=== PATIENT | male | born 1990 | race Caucasian/White ===

== ENCOUNTER 2024-03-01 16:50 | Emergency (ER) | payer BC, SELFPAY ==
[2024-03-01 17:03] VITALS: BP 138/102
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
[2024-03-01 18:00] VITALS: BP 134/78
[2024-03-01] MEDS: TYLENOL 1000 MG PO (18:03)
[2024-03-01 18:05] VITALS: BMI 31.9
[2024-03-01 18:05] LABS: % Basophils 0.2 % (0-2); % Eosinophils 0.4 % (0-6); % Immature Granulocytes 0.4 % (0-0.5); % Lymphocytes 13.3 % (20.5-51.1); % Monocytes 5.1 % (1.7-9.3); % Neutrophils 80.6 % (42.2-75.2); Absolute Lymphocytes 1.1 10^3/uL (1.2-3.4); Absolute Monocytes 0.4 10^3/uL (0.1-0.6); Absolute Neutrophils 6.9 10^3/uL (1.4-6.5); Hematocrit 41.3 % (39.0-52.0); Hemoglobin 14.6 g/dL (13.0-18.0); Mean Corp Hgb Conc. 35.4 g/dL (33.0-37.0); Mean Corpuscular Volume 82.1 fL (80.0-94.0); Mean Platelet Volume 9.2 fL (7.4-10.4); Nucleated Red Blood Cells % 0 % (-); Platelet Count 240 10^3/uL (130-400); Red Blood Cell Count 5.03 10^6/uL (4.70-6.10); Red Cell Dist. Width 12.4 % (11.5-14.5); White Blood Cell Count 8.6 10^3/uL (4.8-10.8)
[2024-03-01 18:13] LABS: Carboxyhemoglobin 3.2 %
[2024-03-01 18:18] LABS: ALT (SGPT) 63 U/L (0-50); AST (SGOT) 42 U/L (17-59); Albumin 5.1 g/dl (3.5-5.0); Alkaline Phosphatase 62 U/L (38-126); Blood Urea Nitrogen 14 mg/dl (9-20); Carbon Dioxide 25 mmol/L (22-30); Chloride 101 mmol/L (98-107); Estimated Creatinine Clearance 105 ml/min; Glucose 95 mg/dl (70-99); Potassium 4.3 mmol/L (3.5-5.1); Sodium 137 mmol/L (135-145); Total Bilirubin 1.9 mg/dl (0.2-1.3); Total Protein 8.1 g/dl (6.3-8.2); eGFR > 60.00
[2024-03-01 19:00] VITALS: BP 120/80
[2024-03-01] MEDS: DUONEB 3 ML INH ×2 (19:03→20:01)
[2024-03-01 20:00] VITALS: BP 130/80
== END 2024-03-01 21:09 | disposition home or self-care (01) ==
LOC: EMR 16:50
PROVIDERS: EMERGENCY PHYSICIAN Emergency Medicine
DX: T59.811A Toxic effect of smoke, accidental (unintentional), initial encounter (principal); R09.89 Other specified symptoms and signs involving the circulatory and respiratory systems; X08.8XXA Exposure to other specified smoke, fire and flames, initial encounter
CPT/HCPCS: 94640; 99284; 71045; 80053; 82375; 85025

== ENCOUNTER 2024-08-12 03:07 | Emergency (ER) | payer BC, SELFPAY ==
[2024-08-12 03:10] VITALS: BMI 30.7
--- NOTE | 2024-08-12 04:23 | DOWNTIME ---
Addendum entered by Melida Cruz RN 08/12/24 15:38:
Correction: Downtime was 08/12/2024 from 0100 to 08/12/2024 at 0415.
Original Note:
There was a [employer] Medical Operations Supervisor Downtime on 08/11/2024 from 0100 to 08/12/2024 at 0415. Downtime documentation of patient's care, including medication administrations, has been reconciled in the electronic record per guidelines. Refer to the
patient's paper chart under the miscellaneous tab to see printed paper medication records and downtime forms.
[2024-08-12 04:52] VITALS: BP 131/74
[2024-08-12 05:00] VITALS: BP 136/80
[2024-08-12 05:14] LABS: % Basophils 0.4 % (0-2); % Eosinophils 1.4 % (0-6); % Immature Granulocytes 0.2 % (0-0.5); % Lymphocytes 42.4 % (20.5-51.1); % Monocytes 8.3 % (1.7-9.3); % Neutrophils 47.3 % (42.2-75.2); Absolute Eosinophils 0.1 10^3/uL (0-0.7); Absolute Lymphocytes 2.4 10^3/uL (1.2-3.4); Absolute Monocytes 0.5 10^3/uL (0.1-0.6); Absolute Neutrophils 2.6 10^3/uL (1.4-6.5); Hematocrit 40.5 % (39.0-52.0); Hemoglobin 14.6 g/dL (13.0-18.0); Mean Corpuscular Hgb 29.4 pg (27.0-31.0); Mean Corpuscular Volume 81.5 fL (80.0-94.0); Nucleated Red Blood Cells % 0 % (-); Platelet Count 258 10^3/uL (130-400); Red Blood Cell Count 4.97 10^6/uL (4.70-6.10); Red Cell Dist. Width 12.1 % (11.5-14.5); White Blood Cell Count 5.6 10^3/uL (4.8-10.8)
[2024-08-12 05:15] LABS: APTT 30.4 Sec (23.4-35.0); INR 0.97; PT 13.2 Sec (11.4-14.6)
[2024-08-12 05:24] LABS: ALT (SGPT) 37 U/L (0-50); AST (SGOT) 23 U/L (17-59); Albumin 4.8 g/dl (3.5-5.0); Alkaline Phosphatase 48 U/L (38-126); Lipase 63 U/L (23-300); Total Bilirubin 1.6 mg/dl (0.2-1.3); Total Protein 7.6 g/dl (6.3-8.2)
[2024-08-12 05:32] LABS: Blood Urea Nitrogen 16 mg/dl (9-20); Calcium 10.3 mg/dl (8.4-10.2); Carbon Dioxide 26 mmol/L (22-30); Chloride 104 mmol/L (98-107); Estimated Creatinine Clearance 117 ml/min; Glucose 103 mg/dl (70-99); Sodium 140 mmol/L (135-145); eGFR > 60.00
[2024-08-12] MEDS: PROTONIX IV 40 MG IV (05:48)
[2024-08-12 06:00] VITALS: BP 130/86
--- NOTE | 2024-08-12 07:08 | ED.GENMED ---
History of Present Illness
General
Chief Complaint: Abdominal Pain
Source: patient
Exam Limitations: none
Nursing documentation reviewed up to this point in time: agreed with
History of Present Illness
History of Present Illness:
Note:
CHIEF COMPLAINT(S)
Severe abdominal pain.
HISTORY OF PRESENT ILLNESS
The patient is a 34-year-old male who presents with severe abdominal pain that began on Saturday. He reports that this pain is worsening since it started. The patient had similar episodes a couple of years ago, which were investigated by a
gastrointestinal specialist at the time, but the findings were unremarkable. Currently, the pain is localized mainly to the middle and right side of the abdomen and radiates to the back. The patient describes some discomfort when pressure is applied
to the abdomen but denies any chest pain or shortness of breath. He reports no recent fever, chills, or significant vomiting, although he has vomited a little. He has been able to keep food down and maintain a normal appetite, but he notes that the
pressure from the pain affects his eating. Various [id number] medications like Gas-X and Tums, recommended by his spouse, have not provided relief. The patient mentions that he was unable to sleep last night due to the pain. He experiences
frequent burping and feels abdominal discomfort if straining during bowel movements.
SOCIAL DETERMINANTS AFFECTING HEALTH
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
SOCIAL HISTORY
The patient denies alcohol use and drug use.
REVIEW OF SYSTEMS
- Gastrointestinal: Severe abdominal pain localized to the middle and right side, radiating to the back, associated with mild nausea and minimal vomiting. Frequent burping noted, no significant change in bowel habits.
- General: Recent difficulty in sleeping due to pain.
- Respiratory: Denies shortness of breath or chest pain.
- Neurological: Denies any neurological deficiencies.
PHYSICAL EXAM
- General: Patient appears in pain during the examination.
- Abdomen: Mid and right-sided abdominal tenderness with radiation to the back; discomfort increases with pressure.
Nursing notes reviewed and vital signs reviewed.
PLAN
- Perform laboratory workup, including blood tests.
- Obtain imaging studies to assess the cause of abdominal pain.
DIFFERENTIAL DIAGNOSIS
The Differential Diagnosis includes, in no particular order and is not limited to:
1. Peptic ulcer disease
2. Cholecystitis
3. Pancreatitis
4. Gastroesophageal reflux disease
5. Gallstones
6. Intestinal obstruction
7. Gastritis
8. Appendicitis
9. Hepatitis
10. Psychological factors such as stress-related gastritis
CARE-UPDATE
08/12/24 - 07:06
No evidence of colitis, gallbladder wall thickening, or biliary tract dilatation. No changes to current treatment plan needed.
Past History
Past History
ED Past Medical History: None
ED Past Surgical History: None
Social History
Tobacco: Non-smoker
Alcohol: Other
Drug: None
Personal: Other
Living: other
Employment: Employed
Family History
Family History: Other
Phy Exam
General Physical Exam
General Presentation: well appearing and moderate distress
General age: appears stated age
General Skin: warm and dry
General Habitus: normal
General Mental: alert
General Hydration: appears well hydrated
ENT Exam
ENT Exam: EOMI, pharynx normal, neck supple and normocephalic
Eye Exam
Eye Exam: PERRL, cornea clear and conjunctiva normal
Cardiovascular Exam
Cardiovascular Exam: regular rate/rhythm, no edema, no murmur and normal peripheral pulses
Pulmonary Exam
Pulmonary Exam: lungs clear, no respiratory distress, no rales, no crackles, no rhonchi, no stridor, no wheezing and no cough
Gastrointestinal Exam
Gastrointestinal Exam: normal bowel sounds, soft, no organomegaly, no pulsatile mass and non distended
Palpation: left upper quadrant: Mild tenderness and right upper quadrant: Mild tenderness
Neurological Exam
Neurological Exam: alert, oriented x3, no motor deficits and speech normal
Musculoskeletal Exam
Musculoskeletal Exam: full ROM and no edema
Skin Exam
Skin Exam: normal color, warm/dry, no rash and no petechia
Psychiatric Exam
Psychiatric Exam: normal mood/affect
Course
Orders/Labs/Results
Orders:
Orders
08/12/24 03:07
Complete Blood Count/With Diff Routine
Comprehensive Metabolic Panel Routine
Lipase Routine
Protime/PTT Routine
08/12/24 05:18
Pantoprazole [Protonix IV] 40 mg IV NOW STA
08/12/24 05:50
US Abdomen Complete/Upper Urgent
Comment:
Reason For Exam: upper abd pain
08/12/24 07:08
CT Abd/pelvis W Iv Cont Urgent
Comment:
Reason For Exam: upper abd pain
Abnormal Lab Results
08/12/24
03:07
Glucose 103 H mg/dl
(70-99)
Calcium 10.3 H mg/dl
(8.4-10.2)
Total Bilirubin 1.6 H mg/dl
(0.2-1.3)
08/12/24 03:07
08/12/24 03:07
Vital Signs
Initial and Last Documented VS:
Initial Vital Signs
Pulse Ox
97
08/12/24 03:10
Last Documented Vital Signs
BP Pulse Ox
130/86 95
08/12/24 06:00 08/12/24 06:00
*Pulse Oximetry
Patient hypoxic: no
*Critical Care Note
Total Time (30-74mins, 75-104mins- exclusive of procedures): Not Applicable
ED Attending Note
-
Portions of this chart may have been created with voice recognition software.� Occasional wrong word or��sound alike� substitutions may have occurred due to the inherent limitations of voice recognition software.
Discharge Plan
Departure
Prescriptions:
No Action
albuterol sulfate 90 mcg/actuation HFA aerosol inhaler
2 puff inhalation Q4H PRN (Reason: shortness of breath or wheezing) Qty: 8.5 1RF
Referrals:
NONE,* [Family Provider, Internal Medicine]
Interventions
Interventions:
*Risk Screen - Suicide Last Done: 08/12/24 03:10
*General Assessment Last Done: 08/12/24 03:10
*Neglect/Abuse Screening Last Done: 08/12/24 03:10
*ED- Fall Risk Assessment Last Done: 08/12/24 03:10
*ED COVID-19 Vaccine History Last Done: 08/12/24 03:10
EG-Wbwkke-Tdleasozof Assessment Last Done: 08/12/24 03:10
Discharge Date and Time
Print Language: ISRAELI
--- NOTE | 2024-08-12 08:44 | ED.ADDNOTE ---
ED Addendum
ED Addendum
ED Addendum Note:
patient signed out pending CT abd /pelv
results show inflammation vs infection in the duodenum/jejunum. Patient is non toxic. No leukocytosis
discussed results with patient. This is his second occurence of this. First episode self resolved. He followed up with GI at that time (3 years ago). Had EGD that was negative other than a polyp.
Discussed options with patient. Will rx antibiotic though lower suspicion for infection. He will hold onto this and take if symptoms not improving in a few days. He will follow up with his spanish speaking babysitter for continued outpatient monitoring and
workup. Discussed the possibility of inflammatory bowel disease with patient.
== END 2024-08-12 09:03 | disposition home or self-care (01) ==
LOC: EMR 03:07
PROVIDERS: EMERGENCY PHYSICIAN Student in an Organized Health Care Education/Training Program
DX: R10.9 Unspecified abdominal pain (principal)
CPT/HCPCS: 99284; 96374; 74177; 76700; 80053; 83690; 85025; 85610; 85730; Q9967